=== PATIENT | male | born 1965 | race Caucasian/White ===

== ENCOUNTER 2017-03-29 17:38 | Emergency (ER) | payer OTHER | END 2017-03-29 21:34 | disposition home or self-care (01) | LOC: ER 17:38 | DX: R51 Headache (principal); R11.0 Nausea; R42 Dizziness and giddiness; G47.63 Sleep related bruxism; H53.8 Other visual disturbances; E11.9 Type 2 diabetes mellitus without complications; I10 Essential (primary) hypertension; F31.9 Bipolar disorder, unspecified; I25.10 Atherosclerotic heart disease of native coronary artery without angina pectoris; F17.220 Nicotine dependence, chewing tobacco, uncomplicated; Z79.82 Long term (current) use of aspirin; Z79.899 Other long term (current) drug therapy; Z88.0 Allergy status to penicillin | CPT/HCPCS: 36415; 96361; 96374; 96375; J1885 ==